=== PATIENT | female | born 1945 | race Caucasian/White ===

== ENCOUNTER 2017-04-15 20:54 | Inpatient (IN) | payer MEDICARE ==
[2017-04-15] MEDS ORDERED: Albuterol Sulfate 2.5 mg/3 ml Neb ONE (21:29)
[2017-04-15 21:34] LABS: #Basophils 0.1 thou/uL (0.0-0.2); #Eosinphils 0.4 thou/uL (0.0-0.7); #Monocytes 0.8 thou/uL (0.11-0.59); #Neutrophils 12.7 thou/uL (1.40-6.50); %Basophils 0.5 % (0.0-1.0); %Eosinophils 2.4 % (0.0-10.0); %Lymphocytes 6.5 % (21.0-51.0); %Monocytes 5.1 % (0.0-10.0); Hematocrit 41.7 % (36.0-47.0); Mean Platelet Volume 7.4 fL (7.4-10.4); Red Blood Cell (RBC) Count 4.85 mill/uL (4.20-5.40); White Blood Cell (WBC) Count 14.8 thou/uL (4.8-10.8)
[2017-04-15] MEDS ORDERED: Water For Inject, Bacteriostat 30 ML ONE (21:34)
[2017-04-15] MEDS ORDERED: methylPREDNISolone Sod Succ/PF 125 MG/2 ML VIAL ONE (21:34)
--- NOTE | 2017-04-15 21:45 | RAD ---
CHEST ONE VIEW: 04/15/17 HISTORY: Dyspnea. COMPARISON: 05/12/16 FINDINGS: The cardiac silhouette is magnified by projection. Pulmonary vasculature is unremarkable. Mediastinum is midline. There is no confluent air space consolidation, or evidence of pneumothorax. IMPRESSION: No active cardiopulmonary abnormalities are demonstrated. POS: [facility]
[2017-04-15 21:57] LABS: ALT (SGPT) 19 U/L (8-55); AST (SGOT) 23 U/L (5-34); Alkaline Phosphatase 100 U/L (40-150); Anion Gap 17 mmol/L (10-20); BUN (Urea Nitrogen) 11 mg/dL (9.8-20.1); Bilirubin, Total 0.4 mg/dL (0.2-1.2); CK (CPK) 105 U/L (29-168); Calc. Creatinine Clearance 0 mL/min (70-130); Calcium 9.7 mg/dL (7.8-10.44); Carbon Dioxide 22 mmol/L (23-31); Chloride 102 mmol/L (98-107); Estimated GFR-MDRD 69; Globulin 3.7 g/dL (2.4-3.5); Protein, Total 7.9 g/dL (6.0-8.3)
[2017-04-15 22:03] LABS: Troponin I 0.017 ng/mL (< 0.028)
[2017-04-16 00:35] VITALS: BMI 40.6
[2017-04-16] MEDS ORDERED: Acetaminophen 325 MG TAB PO PRN (01:52)
[2017-04-16] MEDS ORDERED: Acetaminophen 650 MG Suppository PR PRN (01:52)
[2017-04-16] MEDS ORDERED: Ibuprofen 200 MG TAB PO PRN (01:54)
[2017-04-16] MEDS ORDERED: Albuterol Sulfate 2.5 mg/3 ml Neb NEB SCH (02:30)
--- NOTE | 2017-04-16 03:21 | HP ---
PRIMARY CARE PHYSICIAN: Dr. Rob Dudley. CHIEF COMPLAINT: Shortness of breath. HISTORY OF PRESENT ILLNESS: Ms. Hurt is a pleasant 71-year-old lady who was seen at [facility] on 04/16/2017. She reports that over the last couple of days, she has been having shortness of breath. She reports shortness of breath with exertion. She denies orthopnea or paroxysmal nocturnal dyspnea. She denies any fevers or chills. She reports cough, which is productive of whitish sputum. She denies any krissy sea, vomiting, or diarrhea. She reports cough that is worse with movement. She feels that she was having COPD flare-up because of weather change. She was hospitalized last yea r at this facility for COPD exacerbation. REVIEW OF SYSTEM: The following complete review of systems was negative, unless otherwise mentioned in the HPI or below: CONSTITUTIONAL: Weight loss or gain, sense of well-being, ability to conduct usual activities, exerc ise tolerance. SKIN/BREAST: Rash, itching, changes in hair growth or loss, nail changes, breast lumps, tenderness, swelling, nipple discharge. EYES: Vision, double vision, tearing, blind spots, pain. ENT/MOUTH: Headaches (location, time of onset, duration, precipitating factors), vertigo, lightheade dness, injury. Vision, double vision, tearing, blind spots, pain, nose bleeding, colds, obstruction, discharge, dental difficulties, gingival bleeding, dentures, neck stiffness, pain, tenderness, deni s in thyroid or other areas. CARDIOVASCULAR: Precordial pain, substernal distress, palpitations, syncope, dyspnea on exertion, or thopnea, nocturnal paroxysmal dyspnea, edema, cyanosis, hypertension, heart murmurs, varicosities, ph lebitis, claudication. RESPIRATORY: Pain, shortness of breath, wheezing, stridor, cough, hemoptysis, fever or night sweats GASTROINTESTINAL: Poor appetite, dysphagia, indigestion, abdominal pain, heartburn, eructation, naus ea, vomiting, hematemesis, jaundice, constipation, or diarrhea, abnormal stools (hadley-colored, tarry, bloody, greasy, foul smelling), flatulence, hemorrhoids, recent changes in bowel habits. GENITOURINARY: Urgency, frequency, dysuria, nocturia, hematuria, polyuria, oliguria, unusual (or lyla nge in) color of urine, stones, hesitancy, change in size of stream, dribbling, acute retention or in continence, libido, potency. MUSCULOSKELETAL: Pain, swelling, redness or heat of muscles or joints, limitation of motion, muscula r weakness, atrophy, cramps. NEUROLOGIC/PSYCHIATRIC: Convulsions, paralyses, tremor, incoordination, parasthesias, difficulties w ith memory of speech, sensory or motor disturbances, or muscular coordination (ataxia, tremor), emoti onal problems, anxiety, depression, previous psychiatric care, unusual perceptions, hallucinations. ALLERGY/IMMUNOLOGIC: Skin rash, anemia, bleeding tendency, polydipsia, polyuria, intolerance to heat or cold. PAST MEDICAL HISTORY: Significant for Sjogren's syndrome, hypothyroidism, hypertension, ischemic cer ebrovascular accident and chronic obstructive pulmonary disease. PAST SURGICAL HISTORY: Significant for tonsillectomy, and left carotid endarterectomy. SOCIAL HISTORY: Patient denies any current tobacco use, alcohol use, or recreational drug use. CODE STATUS: I discussed her code status. She is DNR. FAMILY HISTORY: COPD in her mother, sisters with rheumatoid arthritis and coronary artery disease in her father. ALLERGIES: CARVEDILOL, CHLORTHALIDONE, CORTISONE, HYDRALAZINE, LIDOCAINE, MAGNESIUM, NIFEDIPINE, PEN ICILLIN, PREDNISOLONE, PREDNISONE, PROCARDIA, STATINS. CURRENT MEDICATIONS: Include amlodipine 10 mg daily, aspirin 325 mg daily, azithromycin, Z-KARSTEN was s tarted yesterday, Symbicort 2 puffs 2 times a day, vitamin D3 of 2000 units twice daily, clonidine 0. 1 mg 2 times a day, Benadryl 25 mg daily, Lasix 20 mg daily, ibuprofen 200 mg every 6 hours as needed , DuoNebs, levothyroxine 125 mcg daily, Bystolic 10 mg 2 times a day, ramipril 10 mg 2 times a day, a nd spironolactone 25 mg daily. PHYSICAL EXAMINATION: GENERAL: Ms. Hurt is awake and alert, not in acute distress. VITAL SIGNS: She is morbidly obese, with a BMI of 40.6. EYES: No scleral icterus. No conjunctival pallor. ENT: Moist mucosal membranes, no oropharyngeal erythema or exudates. NECK: Supple, nontender, normal range of movement. Trachea is midline. RESPIRATORY: Expiratory wheezes in all lung vee. Accessory muscles of breathing are mildly activ e. Chest wall movements are symmetric bilaterally. CARDIOVASCULAR: S1 and S2 are heard, regular. Peripheral pulses palpable. No carotid bruit, no per icardial rub. ABDOMEN: Soft, nontender, bowel sounds heard, no hepatomegaly or splenomegaly. MUSCULOSKELETAL: Power is 5/5 in all 4 extremities. Normal range of movement at all major extremity joints. NEUROLOGIC: Cranial nerves II-XII are intact. Deep tendon reflexes are 2+. SKIN: No rashes or subcutaneous nodules. PSYCHIATRIC: Normal mood, normal affect, patient is oriented to person, place, and time. LABORATORY DATA: Ms. Hurt's labs and investigations were reviewed. I reviewed her electrocardiogra m, which shows normal sinus rhythm, T-wave flattening in the anterior leads. I also reviewed her [address] st x-ray, which does not show any pulmonary infiltrates. Laboratory investigation showed leukocytosi s with 14,800 white cells, of which 85% on neutrophils, normal hemoglobin, normal platelet count, nor mal sodium, normal potassium, decreased carbon dioxide level of 22, normal creatinine and unremarkabl e liver profile. Troponin I is normal. ASSESSMENT AND PLAN: Ms. Hurt is a pleasant 71-year-old lady who was seen at [facility] on 04/16/2017. Her problem list includes: 1. Chronic obstructive pulmonary disease exacerbation: Ms. Hurt is presenting with acute exacerbat ion of COPD. She saw her family physician yesterday and has been started on prednisone as well as az ithromycin. We will continue her on Z-Karsten and start her on intravenous steroids. We will also provi de her with oxygen and bronchodilators. 2. Cough: Start p.r.n. Robitussin. 3. Hypertension: Continue home medications, monitor vital signs and titrate antihypertensives as ne eded. 4. Hypothyroidism: Continue Synthroid. 5. Ischemic cerebrovascular accident. Continue aspirin. Many thanks for allowing me to participate in your patient's care. Please feel free to contact me wi th any questions or concerns. LEVEL OF RISK: High. LEVEL OF COMPLEXITY: High.
[2017-04-16] MEDS: Diabetic Tussin 200 MG/10 ML UDCUP PO PRN ×2 (05:07→17:49)
[2017-04-16] MEDS: Levothyroxine Sodium 125 MCG TAB PO SCH (05:09)
[2017-04-16] MEDS: Furosemide 20 MG TAB PO SCH (05:09)
[2017-04-16] MEDS: Amlodipine 10 MG TAB PO SCH (05:09)
[2017-04-16 05:46] LABS: #Lymphocytes 0.6 thou/uL (1.20-3.40); #Monocytes 0.1 thou/uL (0.11-0.59); #Neutrophils 12.4 thou/uL (1.40-6.50); %Basophils 0.2 % (0.0-1.0); %Eosinophils 0.3 % (0.0-10.0); %Lymphocytes 4.7 % (21.0-51.0); %Monocytes 0.7 % (0.0-10.0); Hematocrit 40.4 % (36.0-47.0); Mean Platelet Volume 7.5 fL (7.4-10.4); Red Blood Cell (RBC) Count 4.61 mill/uL (4.20-5.40); White Blood Cell (WBC) Count 13.2 thou/uL (4.8-10.8)
[2017-04-16 06:00] LABS: Anion Gap 19 mmol/L (10-20); BUN (Urea Nitrogen) 11 mg/dL (9.8-20.1); Calc. Creatinine Clearance 96 mL/min (70-130); Calcium 9.6 mg/dL (7.8-10.44); Carbon Dioxide 17 mmol/L (23-31); Chloride 103 mmol/L (98-107); Estimated GFR-MDRD 60
[2017-04-16] MEDS: Mometasone/Formoterol 120 PUFF INHALER INH SCH ×2 (06:54→19:02)
[2017-04-16] MEDS ORDERED: Ipratropium Bromide 2.5 ml Neb NEB SCH (07:00)
[2017-04-16] MEDS: cloNIDine 0.1 MG TAB PO SCH ×2 (08:32→21:38)
[2017-04-16] MEDS: Azithromycin 250 MG TAB PO SCH (08:32)
[2017-04-16] MEDS: Nebivolol HCl 5 MG TAB PO SCH ×2 (08:33→21:38)
[2017-04-16] MEDS: Enoxaparin Sodium 40 MG/0.4 ML SYRINGE SC SCH (08:33)
[2017-04-16] MEDS ORDERED: Azithromycin 250 MG TAB PO SCH ×3 (09:00)
[2017-04-16] MEDS ORDERED: AZITHROMYCIN 250 MG PO SCH (09:00)
--- NOTE | 2017-04-16 12:15 | PDOC.PN ---
- Subjective Encounter Start Date: 04/16/17 Encounter Start Time: 12:13 Ms. Hurt was seen today in follow-up of COPD exacerbation. She is breathing a little better, but still is wheezing quite a bit, and is getting short of breath when walking across the room. - Objective Resuscitation Status: Resuscitation Status DNR:Do Not Resuscitate MAR Reviewed: Yes Vital Signs & Weight: Vital Signs (12 hours) Temp Pulse Resp BP BP Pulse Ox 04/16/17 11:33 97.8 F 92 24 H 132/62 93 L 04/16/17 08:00 97.8 F 111 H 20 04/16/17 07:45 111 H 20 129/85 92 L 04/16/17 06:54 81 18 96 04/16/17 05:09 109 H 04/16/17 04:55 97.7 F 105 H 24 H 153/70 H 92 L 04/16/17 01:51 109 H 22 H 96 Weight Weight 243 lb 12.8 oz I&O: 04/15/17 04/16/17 04/17/17 06:59 06:59 06:59 Intake Total 1221 Balance 1221 Result Diagrams: 04/16/17 04:59 04/16/17 04:59 Phys Exam - Physical Examination HEENT: PERRLA Respiratory: no rales, wheezing present + wheezing bilaterally, fairly tight Cardiovascular: RRR, no significant murmur Gastrointestinal: soft, non-tender, positive bowel sounds Musculoskeletal: no edema Dx/Plan (1) Acute and chronic respiratory failure Code(s): J96.20 - ACUTE AND CHR RESP FAILURE, UNSP W HYPOXIA OR HYPERCAPNIA Status: Acute (2) COPD exacerbation Code(s): J44.1 - CHRONIC OBSTRUCTIVE PULMONARY DISEASE W (ACUTE) EXACERBATION Status: Acute (3) Hypertension Code(s): I10 - ESSENTIAL (PRIMARY) HYPERTENSION Status: Chronic (4) Hypothyroidism Code(s): E03.9 - HYPOTHYROIDISM, UNSPECIFIED Status: Chronic - Plan * COPD exacerbation- she is still having fairly tight wheezing * Will continue IV steroids, and duonebs * Consult Pulmonary Medicine * Place her on IN-patient status * HTN- slightly elevated- will add Clonidine as needed.
[2017-04-16] MEDS ORDERED: cloNIDine 0.1 MG TAB PO PRN (12:17)
[2017-04-16] MEDS: Ramipril 5 MG CAP PO SCH ×2 (12:46→21:39)
[2017-04-16] MEDS: Aspirin 325 mg Enteric Coated Tablet PO SCH (12:46)
[2017-04-16] MEDS: Spironolactone 25 MG TAB PO SCH (12:47)
[2017-04-16] MEDS ORDERED: Sterile Water 10 ML ONE (17:02)
[2017-04-16] MEDS: diphenhydrAMINE 25 MG CAP PO SCH (23:55)
[2017-04-17] MEDS: diphenhydrAMINE 25 MG CAP PO SCH ×2 (00:35→22:34)
[2017-04-17] MEDS: Amlodipine 10 MG TAB PO SCH (06:44)
[2017-04-17] MEDS: Levothyroxine Sodium 125 MCG TAB PO SCH (06:44)
[2017-04-17] MEDS: Furosemide 20 MG TAB PO SCH (06:45)
[2017-04-17] MEDS: Mometasone/Formoterol 120 PUFF INHALER INH SCH ×2 (06:51→19:01)
[2017-04-17] MEDS: Nebivolol HCl 5 MG TAB PO SCH ×2 (07:57→20:55)
[2017-04-17] MEDS: Enoxaparin Sodium 40 MG/0.4 ML SYRINGE SC SCH (07:57)
[2017-04-17] MEDS: cloNIDine 0.1 MG TAB PO SCH ×2 (07:57→20:55)
[2017-04-17] MEDS: Azithromycin 250 MG TAB PO SCH (07:57)
--- NOTE | 2017-04-17 13:05 | PDOC.PN ---
- Subjective Encounter Start Date: 04/17/17 Encounter Start Time: 10:35 -: old records requested/rev Patient seen and examined. No new complaints. No overnight events, pt is improving - Objective MAR Reviewed: Yes Vital Signs & Weight: Vital Signs (12 hours) Temp Pulse Resp BP BP Pulse Ox 04/17/17 12:21 98.0 F 87 24 H 117/63 93 L 04/17/17 10:15 98.2 F 95 22 H 94 L 04/17/17 08:00 98.2 F 95 22 H 115/62 94 L 04/17/17 06:51 85 20 04/17/17 06:44 97 120/64 04/17/17 06:38 91 L 04/17/17 06:36 85 20 04/17/17 04:00 98.2 F 96 18 120/64 99 I&O: 04/16/17 04/17/17 04/18/17 06:59 06:59 06:59 Intake Total 960 480 Balance 960 480 Result Diagrams: 04/16/17 04:59 04/16/17 04:59 Phys Exam - Physical Examination Constitutional: NAD HEENT: PERRLA, moist MMs, sclera anicteric Neck: no JVD, supple Respiratory: no rales, wheezing present Cardiovascular: RRR, no significant murmur, no rub Gastrointestinal: soft, non-tender, no distention, positive bowel sounds Musculoskeletal: no edema, pulses present Neurological: non-focal, normal sensation, moves all 4 limbs Psychiatric: normal affect, A&O x 3 Skin: no rash, normal turgor Dx/Plan (1) Acute and chronic respiratory failure Code(s): J96.20 - ACUTE AND CHR RESP FAILURE, UNSP W HYPOXIA OR HYPERCAPNIA Status: Acute (2) COPD exacerbation Code(s): J44.1 - CHRONIC OBSTRUCTIVE PULMONARY DISEASE W (ACUTE) EXACERBATION Status: Acute (3) GERD (gastroesophageal reflux disease) Code(s): K21.9 - GASTRO-ESOPHAGEAL REFLUX DISEASE WITHOUT ESOPHAGITIS Status: Chronic (4) Hypertension Code(s): I10 - ESSENTIAL (PRIMARY) HYPERTENSION Status: Chronic (5) Hypothyroidism Code(s): E03.9 - HYPOTHYROIDISM, UNSPECIFIED Status: Chronic (6) Morbid obesity with BMI of 40.0-44.9, adult Code(s): E66.01 - MORBID (SEVERE) OBESITY DUE TO EXCESS CALORIES; Z68.41 - BODY MASS INDEX (BMI) 40.0-44.9, ADULT Status: Chronic - Plan cont current plan of care, plan discussed w/ family, continue antibiotics, respiratory therapy * continue current optimum medical therapy for copd as below * medication reviewed as below * symptomatic treatment * discussed with family * she need more time to reocover but already improving * expecting discharge soon. Review of Systems - Review of Systems Constitutional: negative: Fever, Chills, Sweats, Weakness, Malaise, Other Eyes: negative: Pain, Vision Change, Conjunctivae Inflammation, Eyelid Inflammation, Redness, Other ENT: negative: Ear Pain, Ear Discharge, Nose Pain, Nose Discharge, Nose Congestion, Mouth Pain, Mouth Swelling, Throat Pain, Throat Swelling, Other Respiratory: Cough, Shortness of Breath, SOB with Excertion. negative: Dry, Hemoptysis, Pleuritic Pain, Sputum, Wheezing Cardiovascular: negative: Chest Pain, Palpitations, Orthopnea, Paroxysmal Noc. Dyspnea, Edema, Light Headedness, Other Gastrointestinal: negative: Nausea, Vomiting, Abdominal Pain, Diarrhea, Constipation, Melena, Hematochezia, Other Genitourinary: negative: Dysuria, Frequency, Incontinence, Hematuria, Retention , Other Musculoskeletal: negative: Neck Pain, Shoulder Pain, Arm Pain, Back Pain, Hand Pain, Leg Pain, Foot Pain, Other Skin: negative: Rash, Lesions, [place], Bruising, Other - Medications/Allergies Allergies/Adverse Reactions: Allergies Allergy/AdvReac Type Severity Reaction Status Date / Time prednisolone Allergy Mild Verified 04/17/17 03:27 carvedilol Allergy Unknown Verified 04/17/17 03:27 lidocaine Allergy Unknown Verified 04/17/17 03:27 nifedipine [From Procardia] Allergy Unknown Verified 04/17/17 03:27 Penicillins Allergy Unknown Verified 04/17/17 03:27 Nglkvja-Frl-Pfy Reductase Allergy Unknown Verified 04/17/17 03:27 Inhibitor chlorthalidone Allergy Verified 04/17/17 03:27 cortisone Allergy Verified 04/17/17 03:27 hydralazine AdvReac Unknown Verified 04/17/17 03:27 Medications: Current Medications Acetaminophen (Tylenol) 650 mg PO Q4H PRN PRN Reason: Headache/Fever or Pain Acetaminophen (Tylenol) 650 mg [place] Q4H PRN PRN Reason: Headache/Fever or Pain Albuterol/Ipratropium (Duoneb) 3 ml NEB Q4H PRN PRN Reason: SOB &/or Wheezing Albuterol/Ipratropium (Duoneb) 3 ml NEB [id number] [facility] Last Admin: 04/17/17 06:36 Dose: 3 ml Amlodipine Besylate (Norvasc) 10 mg PO 0530 [facility] Last Admin: 04/17/17 06:44 Dose: Not Given Aspirin (Ecotrin) 325 mg PO 1330 [facility] Last Admin: 04/16/17 12:46 Dose: Not Given Azithromycin (Zithromax) 250 mg PO DAILY [facility] Stop: 04/19/17 09:01 Last Admin: 04/17/17 07:57 Dose: Not Given Cholecalciferol (Vitamin D3) 2,000 units PO 1330,2130 [facility] Last Admin: 04/16/17 21:39 Dose: Not Given Clonidine (Catapres) 0.1 mg PO BID [facility] Last Admin: 04/17/17 07:57 Dose: Not Given Clonidine (Catapres) 0.1 mg PO Q4H PRN PRN Reason: Systolic BP > 180 Diphenhydramine HCl (Benadryl) 25 mg PO 2230 [facility] Last Admin: 04/17/17 00:35 Dose: Not Given Enoxaparin Sodium (Lovenox) 40 mg SC 0900 [facility] Last Admin: 04/17/17 07:57 Dose: Not Given Furosemide (Lasix) 20 mg PO 0530 [facility] Last Admin: 04/17/17 06:45 Dose: Not Given Guaifenesin (Robitussin Sf) 100 mg PO Q4H PRN PRN Reason: Cough Last Admin: 04/16/17 17:49 Dose: 100 mg Ibuprofen (Motrin) 200 mg PO Q6H PRN PRN Reason: sob/wheezing Levothyroxine Sodium (Synthroid) 125 mcg PO 0500 [facility] Last Admin: 04/17/17 06:44 Dose: Not Given Methylprednisolone Sodium Succinate (Solu-Medrol) 20 mg IVP Q6HR [facility] Mometasone Furoate/Formoterol Fumar (Dulera 200 Mcg/5 Mcg Inhaler) 2 puff INH BID-RT [facility] Last Admin: 04/17/17 06:51 Dose: 2 puff Nebivolol (Bystolic) 10 mg PO BID [facility] Last Admin: 04/17/17 07:57 Dose: Not Given Ramipril (Altace) 10 mg PO 1330,2130 [facility] Last Admin: 04/16/17 21:39 Dose: Not Given Sodium Chloride (Flush - Normal Saline) 10 ml IVF PRN PRN PRN Reason: Saline Flush Last Admin: 04/16/17 17:51 Dose: 10 ml Spironolactone (Aldactone) 25 mg PO 1330 [facility] Last Admin: 04/16/17 12:47 Dose: Not Given
[2017-04-17] MEDS: Ramipril 5 MG CAP PO SCH ×2 (14:49→20:55)
[2017-04-17] MEDS: Aspirin 325 mg Enteric Coated Tablet PO SCH (14:49)
[2017-04-17] MEDS: Spironolactone 25 MG TAB PO SCH (14:49)
--- NOTE | 2017-04-17 15:57 | CON ---
DATE OF CONSULTATION: 04/17/2017 REQUESTING PHYSICIAN: Scooby Gonzalez M.D. REASON FOR CONSULTATION: COPD exacerbation. HISTORY OF PRESENT ILLNESS: This is a 71-year-old female who was admitted to the hospital on 017. She was having shortness of breath for 2 days prior to admission. Her primary care doctor rosmery ruggiero picked her up at home and brought her to the emergency room because the patient was feeling so p oorly. She claims that her Sjogren's syndrome is also causing her mouth to be extremely dry. She fe els better after receiving some breathing treatments and IV steroids. PAST MEDICAL HISTORY: 1. COPD. 2. Sjogren's syndrome. 3. Hypothyroidism. 4. Hypertension. 5. Transient ischemic attacks. PAST SURGICAL HISTORY: 1. Tonsillectomy. 2. Left carotid endarterectomy. SOCIAL HISTORY: The patient quit smoking a few years ago when she had her stroke. She does not cons ume alcohol, does not use illicit drugs. FAMILY MEDICAL HISTORY: Remarkable for COPD, rheumatoid arthritis, coronary artery disease. ALLERGIES: CARVEDILOL, CHLORTHALIDONE, CORTISONE, HYDRALAZINE, LIDOCAINE, MAGNESIUM, NIFEDIPINE, PEN ICILLIN, PREDNISOLONE, PREDNISONE, PROCARDIA, and STATINS. MEDICATIONS PRIOR TO ADMISSION: Included amlodipine, aspirin, azithromycin, Symbicort, clonidine, Be nadryl, Lasix, ibuprofen, DuoNeb, levothyroxine, Bystolic, Ramipril, spironolactone. REVIEW OF SYSTEMS: The patient denies any fever or chills. She has had no nausea or vomiting. She has had a dry mouth. She has had no chest pain. No hematemesis, melena, hematochezia, hematuria, or dysuria. PHYSICAL EXAMINATION: VITAL SIGNS: Temperature 98.0, pulse 87, O2 sat 93% on room air, blood pressure 117/63. GENERAL: She is awake and alert and in no distress. HEENT: Remarkable for dry oral mucous membranes. NECK: No JVD. LUNGS: Fairly clear except for a few crackles in the bases. CARDIAC: S1, S2 regular. ABDOMEN: Soft. EXTREMITIES: No edema. LABORATORY AND X-RAY FINDINGS: Chest x-ray shows no mass, effusion or infiltrates. ASSESSMENT: Chronic obstructive pulmonary disease exacerbation. PLAN: She is doing well on the steroids, nebulization treatments, and antibiotics. I think she can be discharged to home as early as tomorrow.
[2017-04-17] MEDS: Diabetic Tussin 200 MG/10 ML UDCUP PO PRN (16:32)
[2017-04-17] MEDS ORDERED: Benzonatate 100 MG CAP PO PRN (21:22)
[2017-04-18] MEDS: Levothyroxine Sodium 125 MCG TAB PO SCH (05:29)
[2017-04-18] MEDS: Furosemide 20 MG TAB PO SCH (05:30)
[2017-04-18] MEDS: Amlodipine 10 MG TAB PO SCH (05:30)
[2017-04-18] MEDS: Mometasone/Formoterol 120 PUFF INHALER INH SCH (06:40)
[2017-04-18 08:10] VITALS: BP 111/63; TEMP 97.6
[2017-04-18] MEDS: Azithromycin 250 MG TAB PO SCH (08:26)
[2017-04-18] MEDS: cloNIDine 0.1 MG TAB PO SCH (08:27)
[2017-04-18] MEDS: Nebivolol HCl 5 MG TAB PO SCH (08:27)
[2017-04-18] MEDS: Enoxaparin Sodium 40 MG/0.4 ML SYRINGE SC SCH (08:27)
--- NOTE | 2017-04-18 09:42 | PRG ---
DATE OF SERVICE: 04/18/2017 SUBJECTIVE: The patient is doing well and wants to go home. PHYSICAL EXAMINATION: VITAL SIGNS: On exam, temperature 97.6, pulse 74, blood pressure 111/63, O2 sat 93%. HEENT: Unremarkable. NECK: No JVD. CHEST: Clear. CARDIAC: S1 and S2 regular. ABDOMEN: Soft. EXTREMITIES: No edema. ASSESSMENT: 1. Chronic obstructive pulmonary disease exacerbation - symptoms improved. 2. Sjogren's syndrome. PLAN: The patient is stable to go home on tapered dose of steroids, nebulization treatments, and ant ibiotics.
--- NOTE | 2017-04-18 14:10 | DIS ---
DATE OF ADMISSION: 04/16/2017 DATE OF DISCHARGE: 04/18/2017 PRIMARY CARE PHYSICIAN: Rob Dudley M.D. DISCHARGE DISPOSITION: Home. PRIMARY DISCHARGE DIAGNOSES: 1. Acute on chronic respiratory failure with hypoxia. 2. Chronic obstructive pulmonary disease exacerbation. SECONDARY DISCHARGE DIAGNOSES: Morbid obesity with body mass index 40, hypothyroidism, hypertension, gastroesophageal reflux disease, chronic obstructive pulmonary disease, chronic respiratory failure on home oxygen. PRIMARY PROCEDURE/OPERATION: None. RADIOLOGICAL INVESTIGATION: Chest x-ray was unremarkable. SIGNIFICANT LABORATORY DATA: Hemoglobin 12.8, WBC 13.2, platelet of 225. Sodium 135, potassium 3.9, BUN 11, creatinine 0.92, calcium 9.6. LFT normal. Cardiac enzymes negative. DISCHARGE MEDICATIONS: Amlodipine 10 mg daily, aspirin 325 mg p.o. daily, Zithromax 250 mg p.o. steven y for 5 days, Symbicort 2 puff inhalation b.i.d., vitamin D3 2000 units p.o. b.i.d., Catapres 0.1 mg p.o. b.i.d., Benadryl 25 mg p.o. at bedtime, Lasix 20 mg daily, ibuprofen 200 mg p.o. q.6 hourly p.r. n., DuoNeb q.4 hourly p.r.n. Synthroid 125 mcg p.o. daily, Bystolic 10 mg p.o. b.i.d., prednisone 20 mg p.o. b.i.d. for 5 days and then 10 mg p.o. b.i.d. for 5 days and then 10 mg p.o. daily for 5 days, ramipril 10 mg p.o. b.i.d., Aldactone 25 mg p.o. daily. CONTRAINDICATIONS: None. CODE STATUS: FULL CODE. INPATIENT CONSULTANTS: Dr. Eldridge was consulted while in hospital. TEST RESULTS PENDING ON DISCHARGE: None. ALLERGIES: PREDNISOLONE, COREG, LIDOCAINE, NIFEDIPINE, PENICILLIN. DISCHARGE PLAN: Post hospital, the patient will follow up with Dr. Rob Dudley in 1 week. The amanda ent will make an appointment with Dr. Eldridge. HOSPITAL COURSE: A 71-year-old female who was admitted by Dr. Pabon, please see his H&P for further details. The patient was admitted for increasing shortness of breath. She was diagnosed with COPD e xacerbation. She was admitted to medical floor. She was treated optimally for COPD flareup. She wa s also having acute on chronic respiratory failure with hypoxia. While in hospital, she was given em piric antibiotic therapy with azithromycin, Solu-Medrol, DuoNeb and Dulera with significant improveme nt in 24-48 hours. On discharge, we changed to tapering doses of prednisone. Rest of medications, s he had at home. She already has nebulizer machine and nebulizer medication. She also has oral inhalers, only prescri bed prednisone and antibiotic therapy. Pulmonary was following while in hospital and they cleared he r for discharge. The patient is seen and examined at bedside today. PHYSICAL EXAMINATION: VITAL SIGNS: Currently, temperature 97.6, pulse 74, respiratory rate 20, saturation 92%, blood press ure 111/63, weight 243 pounds. GENERAL: The patient is currently alert, awake, no obvious acute distress. HEAD: Normocephalic, atraumatic. LUNGS: Clear to auscultation without any rhonchi or rales. CARDIAC: S1, S2 regular, without any murmurs. ABDOMEN: Soft and benign. EXTREMITIES: No edema. NEUROLOGIC: Nonfocal examination. Review of systems reviewed with her and negative. Plan of care discussed with the family member at [facility]. Total time spent on discharge day more than 30 minutes.
== END 2017-04-18 12:48 | disposition home or self-care (01) | DRG 189 ==
LOC: ERS 20:54 → 2SW 22:57 → OBSVTOIN 04-16 12:56 → T4-B 04-16 14:43
PROVIDERS: ADMIT Internal Medicine; ATTEND Internal Medicine
DX: J96.21 Acute and chronic respiratory failure with hypoxia (principal); Z99.81 Dependence on supplemental oxygen; Z68.41 Body mass index [BMI] 40.0-44.9, adult; J44.1 Chronic obstructive pulmonary disease with (acute) exacerbation; M35.00 Sjogren syndrome, unspecified; E66.01 Morbid (severe) obesity due to excess calories; I10 Essential (primary) hypertension; E03.9 Hypothyroidism, unspecified; Z86.73 Personal history of transient ischemic attack (TIA), and cerebral infarction without residual deficits; Z66 Do not resuscitate; Z88.0 Allergy status to penicillin; Z88.8 Allergy status to other drugs, medicaments and biological substances; Z79.82 Long term (current) use of aspirin; Z79.51 Long term (current) use of inhaled steroids; K21.9 Gastro-esophageal reflux disease without esophagitis; Z87.891 Personal history of nicotine dependence
CPT/HCPCS: 36415; 71010; 80048; 80053; 82553; 83630; 84484; 85025; 87015; 87045; 87046; 87324; 87449; 87899; 93005; 93010; 94640; 94644; 94664; 96360; 96374; A4216; J1650; J2920; J2930; J7611; J7620

== ENCOUNTER 2017-04-18 17:57 | Emergency (ER) | payer MEDICARE ==
[2017-04-18 19:10] LABS: #Eosinphils 0.1 thou/uL (0.0-0.7); #Monocytes 1.3 thou/uL (0.11-0.59); #Neutrophils 15.2 thou/uL (1.40-6.50); %Basophils 0.1 % (0.0-1.0); %Eosinophils 0.3 % (0.0-10.0); %Lymphocytes 5.6 % (21.0-51.0); %Monocytes 7.6 % (0.0-10.0); Mean Platelet Volume 8.2 fL (7.4-10.4); Red Blood Cell (RBC) Count 5.14 mill/uL (4.20-5.40); White Blood Cell (WBC) Count 17.6 thou/uL (4.8-10.8)
[2017-04-18 19:32] LABS: ALT (SGPT) 27 U/L (8-55); AST (SGOT) 42 U/L (5-34); Alkaline Phosphatase 80 U/L (40-150); Anion Gap 16 mmol/L (10-20); BUN (Urea Nitrogen) 25 mg/dL (9.8-20.1); Bilirubin, Total 0.3 mg/dL (0.2-1.2); Calc. Creatinine Clearance 0 mL/min (70-130); Calcium 9.1 mg/dL (7.8-10.44); Carbon Dioxide 22 mmol/L (23-31); Chloride 103 mmol/L (98-107); Estimated GFR-MDRD 67; Protein, Total 7.9 g/dL (6.0-8.3)
== END 2017-04-18 22:28 | disposition home or self-care (01) ==
LOC: ERS 17:57
DX: R19.7 Diarrhea, unspecified (principal); E03.9 Hypothyroidism, unspecified; I10 Essential (primary) hypertension; J44.9 Chronic obstructive pulmonary disease, unspecified; Z79.899 Other long term (current) drug therapy; Z79.52 Long term (current) use of systemic steroids; Z79.82 Long term (current) use of aspirin; Z87.891 Personal history of nicotine dependence
CPT/HCPCS: 80053; 83630; 85025; 87015; 87045; 87046; 87324; 87449; 87899; J7620

== ENCOUNTER 2017-10-07 01:21 | Emergency (ER) | payer MEDICARE ==
[2017-10-07 02:19] LABS: #Basophils 0.1 thou/uL (0.0-0.2); #Eosinphils 0.3 thou/uL (0.0-0.7); #Lymphocytes 2.2 thou/uL (1.20-3.40); #Monocytes 0.8 thou/uL (0.11-0.59); #Neutrophils 6.6 thou/uL (1.40-6.50); %Eosinophils 3.4 % (0.0-10.0); %Monocytes 8.1 % (0.0-10.0); %Neutrophils 65.6 % (42.0-75.0); Hemoglobin 12.8 g/dL (12.0-16.0); Mean Corpuscular HGB CONC 32.8 g/dL (32.0-36.0); Mean Corpuscular Hemoglobin 28.4 pg (27.0-31.0); Mean Corpuscular Volume 86.6 fl (81.0-99.0); Mean Platelet Volume 7.7 fL (7.4-10.4); Platelet Count 242 thou/uL (130-400); RBC Distribution Width 13.1 % (11.5-14.5); Red Blood Cell (RBC) Count 4.52 mill/uL (4.20-5.40)
[2017-10-07 02:40] LABS: ALT (SGPT) 19 U/L (8-55); AST (SGOT) 20 U/L (5-34); Albumin 3.8 g/dL (3.4-4.8); Alkaline Phosphatase 87 U/L (40-150); Anion Gap 15 mmol/L (10-20); BUN (Urea Nitrogen) 29 mg/dL (9.8-20.1); Bilirubin, Total 0.3 mg/dL (0.2-1.2); CK (CPK) 54 U/L (29-168); Calc. Creatinine Clearance 0 mL/min (70-130); Carbon Dioxide 19 mmol/L (23-31); Chloride 106 mmol/L (98-107); Estimated GFR-MDRD 56; Globulin 3.1 g/dL (2.4-3.5); Glucose 115 mg/dL (83-110); Potassium 4.5 mmol/L (3.5-5.1); Protein, Total 6.9 g/dL (6.0-8.3); Sodium 135 mmol/L (136-145)
== END 2017-10-07 02:58 | disposition home or self-care (01) ==
LOC: ERS 01:21
DX: E86.0 Dehydration (principal); R25.2 Cramp and spasm; E03.9 Hypothyroidism, unspecified; I10 Essential (primary) hypertension; J44.9 Chronic obstructive pulmonary disease, unspecified; Z87.891 Personal history of nicotine dependence; Z86.73 Personal history of transient ischemic attack (TIA), and cerebral infarction without residual deficits; Z79.899 Other long term (current) drug therapy; Z79.82 Long term (current) use of aspirin
CPT/HCPCS: 36415; 80053; 82550; 85025; 93005; 96360

== ENCOUNTER 2018-10-09 09:33 | Outpatient (CLI) | payer MEDICARE ==
--- NOTE | 2018-10-09 11:01 | RAD ---
LUMBAR SPINE 2 VIEWS: HISTORY: Osteoarthritis, radiculopathy, sacroiliitis, back pain, right and left radiculopathy, worse on the ri ght. FINDINGS: There are degenerative changes with mild levoscoliosis of the lumbar spine. There is grade I anterol isthesis of L4 over L5. No compression fracture is identified. There are vascular calcifications. IMPRESSION: Lumbar spondylosis. POS: [facility]
--- NOTE | 2018-10-09 11:04 | RAD ---
LEFT HIP 2 VIEWS: Date: 10/09/18 HISTORY: Osteoarthritis, radiculopathy, sacroiliitis. FINDINGS/IMPRESSION: There are mild degenerative changes in the left hip joint. No fracture, dislocation, or bony destruct ion is seen. POS: [facility]
--- NOTE | 2018-10-09 11:05 | RAD ---
AP PELVIS: HISTORY: Osteoarthritis, radiculopathy, sacroiliitis. FINDINGS/IMPRESSION: No fracture, dislocation, or bony destruction is seen. There are mild degenerative changes in the hi p joints and sacroiliac joints. POS: [facility]
--- NOTE | 2018-10-09 11:05 | RAD ---
RIGHT HIP 2 VIEWS: Date: 10/09/18 HISTORY: Osteoarthritis. Radiculopathy. Sacroiliitis. FINDINGS/IMPRESSION: There are mild degenerative changes in the right hip joint. No fracture, dislocation, or bone destruc tion seen. POS: [facility]
== END 2018-10-09 09:34 | disposition home or self-care (01) ==
LOC: BICRAD 09:33
PROVIDERS: ATTEND Family Medicine
DX: M15.0 Primary generalized (osteo)arthritis (principal); M46.1 Sacroiliitis, not elsewhere classified; M54.2 Cervicalgia; M53.3 Sacrococcygeal disorders, not elsewhere classified
CPT/HCPCS: 72100; 72170

== ENCOUNTER 2018-10-10 09:25 | Outpatient (CLI) | payer MEDICARE ==
--- NOTE | 2018-10-10 11:20 | BD ---
DEXA Bone Density History: 73-year-old post-menopausal female for screening. Lumbar Spine: BMD (g/cm2) L1 1.031 T-Score: 0.4 L2 1.072 T-Score: 0.4 L3 1.219 T-Score: 1.2 L4 1.203 T-Score: 1.3 L1-L4 1.136 T-Score: 0.8 Femoral Neck: 0.699 T-Score: -1.4 Total Femur: 0.945 T-Score: 0.0 Impression: Osteopenia. This patient has a 10-year WHO fracture risk of a major osteoporotic fracture of 9.4% and hip fracture of 1.5%. POS: [facility]
== END 2018-10-10 09:26 | disposition home or self-care (01) ==
LOC: BICMAMMO 09:25
PROVIDERS: ATTEND Family Medicine
DX: M81.0 Age-related osteoporosis without current pathological fracture (principal); M85.859 Other specified disorders of bone density and structure, unspecified thigh
CPT/HCPCS: 77080

== ENCOUNTER 2020-03-25 10:39 | Outpatient (CLI) | payer MEDICARE ==
--- NOTE | 2020-03-25 11:19 | RAD ---
XR Lumbar Spine 2 Or 3 View HISTORY: Lumbago with sciatica, left side COMPARISON: 10/09/2018 FINDINGS: Degenerative changes with mild disc levoscoliosis of the lumbar spine are again seen. Grade 1 anterol isthesis of L4 over L5 is stable. No compression fracture or bony destruction is seen. Vascular opacification is again noted. IMPRESSION: Lumbar spondylosis
--- NOTE | 2020-03-25 13:49 | RAD ---
AP PELVIS: 03/25/20 HISTORY: Pelvic and coccyx pain. Some moderate arthritic changes of the lower lumbar spine and mild arthritic changes of both hips. Th ere is also arthritic change of the SI joint region. Overall appearance is fairly stable as compared to a 10/09/18 study. IMPRESSION: No acute changes. Arthritic changes as discussed above. POS: [facility]
== END 2020-03-25 10:40 | disposition home or self-care (01) ==
LOC: BICRAD 10:39
PROVIDERS: ATTEND Family Medicine
DX: M54.42 Lumbago with sciatica, left side (principal); M53.3 Sacrococcygeal disorders, not elsewhere classified; M47.816 Spondylosis without myelopathy or radiculopathy, lumbar region; M47.898 Other spondylosis, sacral and sacrococcygeal region
CPT/HCPCS: 72100; 72170

== ENCOUNTER 2021-01-07 | Emergency (ER) | payer MEDICARE | END 2021-01-07 12:37 | disposition home or self-care (01) ==

== ENCOUNTER 2021-02-02 13:18 | Outpatient (CLI) | payer MEDICARE | END 2021-02-02 13:19 | disposition home or self-care (01) | LOC: BICRAD 13:18 | PROVIDERS: ATTEND Family Medicine | DX: M25.532 Pain in left wrist (principal); Z87.828 Personal history of other (healed) physical injury and trauma ==

== ENCOUNTER 2023-08-19 13:44 | Emergency (ER) | payer MEDICARE | END 2023-08-19 15:55 | disposition home or self-care (01) | LOC: ERS 13:44 | DX: I11.9 Hypertensive heart disease without heart failure (principal); J44.9 Chronic obstructive pulmonary disease, unspecified; Z87.891 Personal history of nicotine dependence | CPT/HCPCS: 93005 ==

== ENCOUNTER 2025-01-07 10:52 | Outpatient (CLI) | payer MEDICARE | END 2025-01-07 10:53 | disposition home or self-care (01) | LOC: BICRAD 10:52 | PROVIDERS: ATTEND Family Medicine | DX: M79.672 Pain in left foot (principal); M79.89 Other specified soft tissue disorders; L81.9 Disorder of pigmentation, unspecified; S92.352A Displaced fracture of fifth metatarsal bone, left foot, initial encounter for closed fracture; M21.962 Unspecified acquired deformity of left lower leg ==